=== PATIENT | female | born 1985 | race Caucasian/White ===

== ENCOUNTER 2016-12-09 19:30 | Emergency (ER) | payer BC ==
[~2016-12-09] VITALS: Ht 154.9 cm; Wt 73.2 kg
[~2016-12-09 19:30] MED LIST: KLONOPIN 0.5MG0.5 MG PO; LEXAPRO20 MG PO; MOTRIN 800800 MG/TAB PO; ORTHO TRI-CYCLE1 TAB PO; PEPCID 20MG TAB20 MG PO; PERCOCET 325 MG1 TA2 PO; PRENATAL1 TA2 PO; PROZAC 10MG10 MG PO; XANAX 0.5MG0.5 MG PO; ZOLOFT 50MG50 MG PO
[2016-12-09 19:44] VITALS: TEMP 98
[2016-12-09] MEDS ORDERED: LEXAPRO20 MG PO (19:50)
[2016-12-09] MEDS ORDERED: MONONESSA 35 MC1 TA1 PO (19:51)
[2016-12-09 20:44] LABS: BASO # 0.1 (0.0-0.2); BASO % 0.6 % (0.0-2.0); EOS % 0.4 % (0-4.0); GRAN # 6.7 (1.4-6.5); HEMATOCRIT 41.7 % (37.0-47.0); HEMOGLOBIN 14.9 g/dl (12.5-16.0); LYMPH # 2.7 (1.2-3.4); LYMPH % 26.4 % (20.0-51.0); MEAN CELL VOLUME 86 fl (80.0-100.0); MEAN CORPUSCULAR HEMOGLOBIN 31 pg (27.0-31.0); MEAN CORPUSCULAR HGB CONC 36 g/dl (33.0-37.0); MEAN PLATELET VOLUME 9.9 fl (7.4-10.4); MONO # 0.8 (0.1-0.6); MONO % 7.4 % (1.7-9.3); PLATELET COUNT 254 K/mm3 (130-400); RED BLOOD COUNT 4.87 M/mm3 (4.10-5.30); REDCELL DISTRIBUTION WIDTH-CV 11.4 % (11.5-14.5); WHITE BLOOD COUNT 10.3 K/mm3 (4.8-10.8)
[2016-12-09 20:59] LABS: ADJUSTED CALCIUM 9.3 mg/dL (8.4-10.2); ALANINE AMINOTRANSFERASE 40 U/L (9-52); ALBUMIN 4.9 gm/dL (3.5-5.0); ALKALINE PHOSPHATASE 64 U/L (50-136); ANION GAP 16 mmol/L (7-16); BILIRUBIN,TOTAL 0.8 mg/dL (0.0-1.0); BLOOD UREA NITROGEN 9 mg/dL (7-17); CARBON DIOXIDE 23 mmol/L (22-30); CHLORIDE 104 mmol/L (98-107); CREATININE, serum 0.62 mg/dL (0.52-1.25); GLUCOSE 87 mg/dL (74-106); SODIUM 143 mmol/L (137-145); TOTAL PROTEIN 8.3 gm/dL (6.4-8.2)
[2016-12-09 21:16] LABS: TROPONIN-I < 0.012 ng/mL (0.000-0.034)
[2016-12-09 22:07] VITALS: BP 123/84; PULSE 70
== END 2016-12-09 22:44 | disposition home or self-care (01) ==
LOC: COL.ER 19:30
PROVIDERS: Emergency Medicine
DX: R00.2 Palpitations (principal); E87.6 Hypokalemia; I34.1 Nonrheumatic mitral (valve) prolapse; F41.9 Anxiety disorder, unspecified
CPT/HCPCS: J2060; J7030

== ENCOUNTER → 2017-01-27 | Outpatient (CLI) | payer BC, OTHER ==
[~2017-01-27] MED LIST changes: +MONONESSA 35 MC1 TA1 PO
== END ==
LOC: BHSO 13:43
DX: F41.1 Generalized anxiety disorder (principal)
CPT/HCPCS: 90791-AI

== ENCOUNTER → 2017-03-10 | Outpatient (CLI) | payer BC, OTHER | LOC: BHSO 13:14 | DX: F41.1 Generalized anxiety disorder (principal) ==

== ENCOUNTER → 2017-04-22 | Outpatient (CLI) | payer BC, OTHER | LOC: BHSO 13:12 | DX: F41.1 Generalized anxiety disorder (principal) ==

== ENCOUNTER → 2017-05-15 | Outpatient (CLI) | payer BC | LOC: COL.VAS 13:15 | DX: I34.0 Nonrheumatic mitral (valve) insufficiency (principal) ==

== ENCOUNTER → 2017-05-21 | Outpatient (CLI) | payer BC | LOC: BHSO 13:06 | DX: F41.1 Generalized anxiety disorder (principal) ==

== ENCOUNTER → 2017-08-11 | Outpatient (CLI) | payer BC | LOC: BHSO 10:53 | DX: F41.1 Generalized anxiety disorder (principal) ==

== ENCOUNTER 2017-08-28 17:31 | Emergency (ER) | payer BC ==
[~2017-08-28] VITALS: Ht 154.9 cm; Wt 76.4 kg
[2017-08-28 17:33] VITALS: TEMP 97.7
[2017-08-28] MEDS ORDERED: FLAGYL500 MG PO (17:37)
[2017-08-28] MEDS ORDERED: ATIVAN 1MG T1 MG/TAB PO (17:38)
[2017-08-28] MEDS ORDERED: LEXAPRO 10MG10 MG PO (17:38)
[2017-08-28 18:20] LABS: BASO # 0.1 (0.0-0.2); BASO % 0.6 % (0.0-2.0); EOS # 0.1 (0.0-0.7); EOS % 0.9 % (0-4.0); GRAN # 7.3 (1.4-6.5); GRAN % 68.9 % (42.2-75.2); HEMATOCRIT 43.3 % (37.0-47.0); LYMPH # 2.2 (1.2-3.4); LYMPH % 21.1 % (20.0-51.0); MEAN CELL VOLUME 89 fl (80.0-100.0); MEAN CORPUSCULAR HEMOGLOBIN 31 pg (27.0-31.0); MEAN CORPUSCULAR HGB CONC 35 g/dl (33.0-37.0); MEAN PLATELET VOLUME 9.9 fl (7.4-10.4); MONO # 0.9 (0.1-0.6); MONO % 8.2 % (1.7-9.3); PLATELET COUNT 247 K/mm3 (130-400); RED BLOOD COUNT 4.89 M/mm3 (4.10-5.30); REDCELL DISTRIBUTION WIDTH-CV 11.4 % (11.5-14.5); WHITE BLOOD COUNT 10.6 K/mm3 (4.8-10.8)
[2017-08-28 18:30] LABS: PROTHROMBIN TIME 11.4 SECONDS (9.7-12.8)
[2017-08-28 18:32] LABS: PARTIAL THROMBOPLASTIN TIME 29.3 SECONDS (26.0-37.0)
[2017-08-28 18:35] LABS: ADJUSTED CALCIUM 8.9 mg/dL (8.4-10.2); ALANINE AMINOTRANSFERASE 31 U/L (9-52); ALBUMIN 4.4 gm/dL (3.5-5.0); ALKALINE PHOSPHATASE 58 U/L (50-136); ANION GAP 12 mmol/L (7-16); BILIRUBIN,TOTAL 0.6 mg/dL (0.0-1.0); BLOOD UREA NITROGEN 10 mg/dL (7-17); CALCIUM 9.2 mg/dL (8.4-10.2); CARBON DIOXIDE 23 mmol/L (22-30); CHLORIDE 106 mmol/L (98-107); CREATININE, serum 0.64 mg/dL (0.52-1.25); GLUCOSE 91 mg/dL (74-106); POTASSIUM 3.6 mmol/L (3.4-5.0); SODIUM 141 mmol/L (137-145); TOTAL PROTEIN 7.3 gm/dL (6.4-8.2)
[2017-08-28 18:55] LABS: TROPONIN-I < 0.012 ng/mL (0.000-0.034)
[2017-08-28 19:20] VITALS: BP 119/83; PULSE 91
== END 2017-08-28 19:20 | disposition home or self-care (01) ==
LOC: COL.ER 17:31
PROVIDERS: Family Medicine
DX: F41.0 Panic disorder [episodic paroxysmal anxiety] (principal); F32.9 Major depressive disorder, single episode, unspecified
CPT/HCPCS: J2060

== ENCOUNTER → 2017-09-25 | Outpatient (CLI) | payer BC ==
[~2017-09-25] MED LIST changes: +ATIVAN 1MG T1 MG/TAB PO; +FLAGYL500 MG PO; +LEXAPRO 10MG10 MG PO
== END ==
LOC: BHSO 13:38
DX: F41.1 Generalized anxiety disorder (principal)

== ENCOUNTER → 2017-10-22 | Outpatient (CLI) | payer BC | LOC: BHSO 14:40 | DX: F41.1 Generalized anxiety disorder (principal) ==

== ENCOUNTER 2018-12-19 10:57 | Emergency (ER) | payer MEDICAID ==
[~2018-12-19] VITALS: Ht 154.9 cm; Wt 89.5 kg
[2018-12-19 11:14] VITALS: BP 122/85; TEMP 99
[2018-12-19] MEDS ORDERED: MULTI VITAMINS1 TAB PO (11:38)
--- NOTE | 2018-12-19 11:40 | NUR ---
1140-This RN to [facility] ED Room 12, VSS, see flow record from ED. Placed on EFM. Patient reports good movement. Denies LOF or complaint of contractions. Difficulty tracing EFM, RN frequently repositioning. Repositioned WR. RN holding EFM in place, reactive FHR with moderate variability. Baseline FHR 140 bpm. Discontinued EFM, will update ED RN.
[2018-12-19 12:09] LABS: BASO % 0.3 % (0.0-2.0); EOS # 0.1 (0.0-0.7); EOS % 0.6 % (0-4.0); GRAN % 71.3 % (42.2-75.2); HEMATOCRIT 39.2 % (37.0-47.0); HEMOGLOBIN 13.4 g/dl (12.5-16.0); LYMPH # 1.8 (1.2-3.4); LYMPH % 18.5 % (20.0-51.0); MEAN CELL VOLUME 90 fl (80.0-100.0); MEAN CORPUSCULAR HEMOGLOBIN 31 pg (27.0-31.0); MEAN CORPUSCULAR HGB CONC 34 g/dl (33.0-37.0); MEAN PLATELET VOLUME 9.6 fl (7.4-10.4); MONO # 0.8 (0.1-0.6); MONO % 7.9 % (1.7-9.3); PLATELET COUNT 209 K/mm3 (130-400); RED BLOOD COUNT 4.37 M/mm3 (4.10-5.30); REDCELL DISTRIBUTION WIDTH-CV 12.3 % (11.5-14.5)
[2018-12-19 12:17] LABS: ALBUMIN 3.4 gm/dL (3.5-5.0); BILIRUBIN,TOTAL 0.2 mg/dL (0.0-1.0); CREATININE, serum 0.4 mg/dL (0.52-1.25); POTASSIUM 3.9 mmol/L (3.4-5.0); TOTAL PROTEIN 6.6 gm/dL (6.4-8.2)
[2018-12-19 12:48] LABS: TSH w REFLEX 1.06 uIU/mL (0.465-4.680)
[2018-12-19 13:03] VITALS: PULSE 90
== END 2018-12-19 13:07 | disposition home or self-care (01) ==
LOC: COL.ER 10:57
PROVIDERS: Emergency Medicine
DX: O26.812 Pregnancy related exhaustion and fatigue, second trimester (principal); O99.342 Other mental disorders complicating pregnancy, second trimester; F41.9 Anxiety disorder, unspecified; Z98.890 Other specified postprocedural states; Z3A.28 28 weeks gestation of pregnancy
CPT/HCPCS: J7030

== ENCOUNTER 2019-02-06 20:31 | Emergency (ER) | payer MEDICAID ==
[~2019-02-06] VITALS: Ht 154.9 cm; Wt 93.6 kg
[~2019-02-06 20:31] MED LIST changes: +MULTI VITAMINS1 TAB PO
[2019-02-06 20:40] VITALS: TEMP 98
[2019-02-06] MEDS ORDERED: EFFEXOR 75M75 MG/TAB PO (22:05)
[2019-02-06 23:07] LABS: BASO % 0.2 % (0.0-2.0); EOS # 0.1 (0.0-0.7); EOS % 0.5 % (0-4.0); GRAN # 8.7 (1.4-6.5); GRAN % 77.1 % (42.2-75.2); HEMATOCRIT 39.1 % (37.0-47.0); HEMOGLOBIN 13.6 g/dl (12.5-16.0); LYMPH # 1.5 (1.2-3.4); LYMPH % 13.6 % (20.0-51.0); MEAN CELL VOLUME 89 fl (80.0-100.0); MEAN CORPUSCULAR HEMOGLOBIN 31 pg (27.0-31.0); MEAN CORPUSCULAR HGB CONC 35 g/dl (33.0-37.0); MEAN PLATELET VOLUME 9.9 fl (7.4-10.4); MONO # 0.9 (0.1-0.6); PLATELET COUNT 195 K/mm3 (130-400); RED BLOOD COUNT 4.41 M/mm3 (4.10-5.30); REDCELL DISTRIBUTION WIDTH-CV 12.4 % (11.5-14.5)
--- NOTE | 2019-02-06 23:15 | NUR ---
FHR BASELINE 140 , ACCELS PRESENT, NO DECELS. NO UTERINE ACTIVITY NOTED OR PALPATED.MUCH MOVEMENT AUDIBLE
[2019-02-06 23:18] LABS: ALANINE AMINOTRANSFERASE 31 U/L (9-52); ALBUMIN 3.3 gm/dL (3.5-5.0); ALKALINE PHOSPHATASE 149 U/L (50-136); ANION GAP 6 mmol/L (7-16); AST,SGOT 25 U/L (15-37); BILIRUBIN,TOTAL 0.6 mg/dL (0.0-1.0); BLOOD UREA NITROGEN 6 mg/dL (7-17); CALCIUM 8.9 mg/dL (8.4-10.2); CARBON DIOXIDE 20 mmol/L (22-30); CHLORIDE 106 mmol/L (98-107); CREATININE, serum 0.38 mg/dL (0.52-1.25); GLUCOSE 82 mg/dL (74-106); POTASSIUM 3.8 mmol/L (3.4-5.0); SODIUM 132 mmol/L (137-145); TOTAL PROTEIN 6.4 gm/dL (6.4-8.2)
[2019-02-06 23:28] LABS: TROPONIN-I < 0.012 ng/mL (0.000-0.035)
[2019-02-07 00:28] LABS: COLLECTION METHOD CLEAN CATCH
[2019-02-07 01:10] LABS: AMORPHOUS CRYSTAL Present /uL; MUCOUS Present /lpf; PH 6 (5-8); SQUAMOUS EPITHELIAL 0-2 /hpf; URINE APPEARANCE Hazy; URINE BACTERIA Rare /hpf; URINE BILIRUBIN Negative (NEGATIVE); URINE BLOOD 1+ (NEGATIVE); URINE COLOR Yellow; URINE GLUCOSE Negative (NEGATIVE); URINE KETONE 1+ (NEGATIVE); URINE LEUKOCYTE ESTERASE Negative (NEGATIVE); URINE NITRATE Negative (NEGATIVE); URINE PROTEIN(semi-quant) Negative (NEGATIVE); URINE RBC 0-2 /hpf; URINE UROBILINOGEN Negative (NEGATIVE)
[2019-02-07 02:20] VITALS: BP 121/70; PULSE 80
== END 2019-02-07 02:21 | disposition home or self-care (01) ==
LOC: COL.ER 20:31
PROVIDERS: Emergency Medicine
DX: O26.893 Other specified pregnancy related conditions, third trimester (principal); R00.2 Palpitations; Z3A.36 36 weeks gestation of pregnancy
CPT/HCPCS: J7030

== ENCOUNTER 2019-03-03 05:31 | Inpatient (IN) | payer MEDICAID ==
[~2019-03-03] VITALS: Ht 154.9 cm; Wt 94.5 kg
[2019-03-03] VITALS (18 sets, daily range): BP systolic 104–143; BP diastolic 61–79; PULSE 78–124; TEMP 97.8–98.3
[~2019-03-03 05:31] MED LIST changes: +EFFEXOR 75M75 MG/TAB PO
--- NOTE | 2019-03-03 05:40 | NUR ---
Pt ambulatory to 210 for scheduled with her mother. Clean gown on. EFM and TOCO explained and applied. Vital signs taken. Pt denies LOF, vaginal bleeding or contractions. Reports good movement. 0553: IV started and labs obtained via IV site. LR bolus infusing without difficulties. Consents explained and signed. Call light within reach.
[2019-03-03 06:34] LABS: BASO % 0.2 % (0.0-2.0); EOS # 0.1 (0.0-0.7); EOS % 0.7 % (0-4.0); GRAN # 5.5 (1.4-6.5); GRAN % 65.5 % (42.2-75.2); HEMOGLOBIN 13.5 g/dl (12.5-16.0); LYMPH # 2.2 (1.2-3.4); LYMPH % 25.9 % (20.0-51.0); MEAN CELL VOLUME 89 fl (80.0-100.0); MEAN CORPUSCULAR HEMOGLOBIN 31 pg (27.0-31.0); MEAN CORPUSCULAR HGB CONC 35 g/dl (33.0-37.0); MEAN PLATELET VOLUME 10.1 fl (7.4-10.4); MONO # 0.6 (0.1-0.6); MONO % 7.1 % (1.7-9.3); PLATELET COUNT 200 K/mm3 (130-400); RED BLOOD COUNT 4.37 M/mm3 (4.10-5.30); REDCELL DISTRIBUTION WIDTH-CV 12.3 % (11.5-14.5)
[2019-03-03] MEDS ORDERED: FLINTSTONES COM1 CT1 PO (06:43)
[2019-03-03] MEDS ORDERED: OMEGA-3 1000 MG1 CAP PO (06:44)
--- NOTE | 2019-03-03 07:13 | NUR ---
0713- [facility] and TOCO off. Pt up to void. Ambulates to OR independently with staff and mother, Peg.
--- NOTE | 2019-03-03 07:29 | NUR ---
0720- EFM on and tracing in OR. 0929- EFM off for abd prep.
[2019-03-04 07:16] VITALS: BP 100/59; PULSE 83
[2019-03-04 16:00] VITALS: BP 104/51; PULSE 71; TEMP 98.5
[2019-03-04 19:00] VITALS: BP 96/67; PULSE 60; TEMP 98.4
[2019-03-05] MEDS ORDERED: PERCOCET 325 MG1 TA2 PO (04:54)
[2019-03-05] MEDS ORDERED: MOTRIN 800800 MG/TAB PO (04:54)
[2019-03-05 07:05] VITALS: BP 106/72; PULSE 77; TEMP 97.5
== END 2019-03-05 12:15 | disposition home or self-care (01) | DRG 788 ==
LOC: OB 05:31
PROVIDERS: ADMIT Obstetrics & Gynecology
PROC: 10D00Z1 Extraction of Products of Conception, Low, Open Approach (ICD-10-PCS; principal; 2019-03-03)
DX: O34.211 Maternal care for low transverse scar from previous cesarean delivery (principal); N85.8 Other specified noninflammatory disorders of uterus; Z3A.39 39 weeks gestation of pregnancy; Z37.0 Single live birth; O77.0 Labor and delivery complicated by meconium in amniotic fluid; O69.81X0 Labor and delivery complicated by cord around neck, without compression, not applicable or unspecified; O99.344 Other mental disorders complicating childbirth; F41.8 Other specified anxiety disorders; O99.824 Streptococcus B carrier state complicating childbirth
CPT/HCPCS: J0690; J1885; J2270; J2370; J2405; J2590; J7120

== ENCOUNTER → 2019-03-08 | Outpatient (CLI) | payer MEDICAID ==
[~2019-03-08] MED LIST changes: +FLINTSTONES COM1 CT1 PO; +OMEGA-3 1000 MG1 CAP PO
--- NOTE | 2019-03-08 15:07 | NUR ---
Pt, Luciana Salazar, presents for consult with 5 day old baby girl, Chrystal Salazar, for an evaluation because Chrystal was seen at Dr. Jensen's office earlier and her weight was reported to be less than her discharge weight. Also, she reports lots of stomach rumbling noises and the baby acting hungry frequently. Chrystal was born by repeat c/section on [birth year] and weighed 7#0.5oz (3190 gms). Discharge weight was documented as 6#7oz (2930 gms). Pt reports at Dr. Jensen's office her weight was 6#6oz. At this appointment Chrystal weighs 6#8.2oz (2954 gms). Pt states she did feed her about 30ml from a bottle at the doctor's appointment because she was concerned for the weight. She also was supplmented a little while in the hospital as well. Pt's breasts are full at this time with leaking noted. She is advised on support of baby and breast, latch is pretty easy and several swallows are noted. After nursing the right breast Chrystal has a weight gain of 2oz (58gms). She has a total weight gain of 2.4oz (66gms) after the second breast. Feeding plan reviewed to nurse the first breast thouroughly before switching to the second side, and to consider pumping the less nursed on side to help provide bottles as desired for excursions as pt does not feel comfortable in public. F/U: advised on weight check in two days a [facility] or next thursday at the walk-in clinic offer here. Pt verbalizes understanding, expresses relief baby is transfering milk and nursing better than she expected. Questions invited and answered.
== END ==
LOC: LAC 14:12
DX: Z39.1 Encounter for care and examination of lactating mother (principal); Z71.89 Other specified counseling

== ENCOUNTER 2019-05-21 05:26 | Emergency (ER) | payer MEDICAID ==
[~2019-05-21] VITALS: Ht 154.9 cm; Wt 86.8 kg
[2019-05-21 05:32] VITALS: TEMP 98.2
[2019-05-21] MEDS ORDERED: LEXAPRO20 MG PO (05:50)
[2019-05-21 06:22] LABS: COLLECTION METHOD CLEAN CATCH
[2019-05-21 06:26] LABS: BASO % 0.4 % (0.0-2.0); EOS # 0.1 (0.0-0.7); EOS % 1.3 % (0-4.0); GRAN % 62.6 % (42.2-75.2); HEMATOCRIT 40.2 % (37.0-47.0); HEMOGLOBIN 13.8 g/dl (12.5-16.0); LYMPH # 2.2 (1.2-3.4); LYMPH % 27.1 % (20.0-51.0); MEAN CELL VOLUME 88 fl (80.0-100.0); MEAN CORPUSCULAR HEMOGLOBIN 30 pg (27.0-31.0); MEAN CORPUSCULAR HGB CONC 34 g/dl (33.0-37.0); MEAN PLATELET VOLUME 9.4 fl (7.4-10.4); MONO # 0.7 (0.1-0.6); MONO % 8.3 % (1.7-9.3); PLATELET COUNT 261 K/mm3 (130-400); RED BLOOD COUNT 4.59 M/mm3 (4.10-5.30); REDCELL DISTRIBUTION WIDTH-CV 11.7 % (11.5-14.5)
[2019-05-21 06:30] LABS: PH 7 (5-8); SQUAMOUS EPITHELIAL 0-2 /hpf; URINE APPEARANCE Clear; URINE BACTERIA None Seen /hpf; URINE BILIRUBIN Negative (NEGATIVE); URINE BLOOD 1+ (NEGATIVE); URINE COLOR Yellow; URINE GLUCOSE Negative (NEGATIVE); URINE KETONE Trace (NEGATIVE); URINE LEUKOCYTE ESTERASE Trace (NEGATIVE); URINE NITRATE Negative (NEGATIVE); URINE PROTEIN(semi-quant) Negative (NEGATIVE); URINE UROBILINOGEN Negative (NEGATIVE)
[2019-05-21 06:36] LABS: ALANINE AMINOTRANSFERASE 30 U/L (9-52); ALBUMIN 3.9 gm/dL (3.5-5.0); ALKALINE PHOSPHATASE 94 U/L (50-136); ANION GAP 8 mmol/L (7-16); AST,SGOT 22 U/L (15-37); BILIRUBIN,TOTAL 0.4 mg/dL (0.0-1.0); BLOOD UREA NITROGEN 13 mg/dL (7-17); CALCIUM 9.2 mg/dL (8.4-10.2); CARBON DIOXIDE 25 mmol/L (22-30); CHLORIDE 110 mmol/L (98-107); CREATININE, serum 0.54 (0.52-1.25); GLUCOSE 87 mg/dL (74-106); LIPASE 95 U/L (23-300); MAGNESIUM 1.9 mg/dL (1.6-2.3); POTASSIUM 3.7 mmol/L (3.4-5.0); SODIUM 142 mmol/L (137-145)
[2019-05-21] MEDS ORDERED: PROTONIX 40MG T40 MG PO (06:40)
[2019-05-21 06:54] LABS: TROPONIN-I < 0.012 ng/mL (0.000-0.035)
[2019-05-21 07:29] VITALS: BP 111/74; PULSE 80
== END 2019-05-21 07:38 | disposition home or self-care (01) ==
LOC: COL.ER 05:26
PROVIDERS: Emergency Medicine
DX: F41.9 Anxiety disorder, unspecified (principal)
CPT/HCPCS: J2060

== ENCOUNTER 2021-04-01 03:28 | Observation (INO) | payer MEDICAID ==
[~2021-04-01] VITALS: Ht 154.9 cm; Wt 88.6 kg
[~2021-04-01 03:28] MED LIST changes: +CEPHALEXIN500 M1 PO; +PROTONIX 40MG T40 MG PO
[2021-04-01 04:11] LABS: BASO # 0.1 (0.0-0.2); BASO % 0.7 % (0.0-2.0); EOS # 0.1 (0.0-0.7); GRAN # 6.6 (1.4-6.5); GRAN % 65.9 % (42.2-75.2); HEMATOCRIT 40.9 % (37.0-47.0); HEMOGLOBIN 14.1 g/dl (12.5-16.0); LYMPH # 2.5 (1.2-3.4); LYMPH % 24.6 % (20.0-51.0); MEAN CELL VOLUME 88 fl (80.0-100.0); MEAN CORPUSCULAR HEMOGLOBIN 30 pg (27.0-31.0); MEAN CORPUSCULAR HGB CONC 35 g/dl (33.0-37.0); MEAN PLATELET VOLUME 9.5 fl (7.4-10.4); MONO # 0.7 (0.1-0.6); MONO % 7.4 % (1.7-9.3); PLATELET COUNT 261 K/mm3 (130-400); RED BLOOD COUNT 4.64 M/mm3 (4.10-5.30); REDCELL DISTRIBUTION WIDTH-CV 11.9 % (11.5-14.5)
[2021-04-01 04:22] LABS: ALBUMIN 4.2 gm/dL (3.5-5.0); BILIRUBIN,TOTAL 0.4 mg/dL (0.0-1.0); CALCIUM 8.7 mg/dL (8.4-10.2); CREATININE, serum 0.51 (0.52-1.25); POTASSIUM 3.4 mmol/L (3.4-5.0); TOTAL PROTEIN 7.3 gm/dL (6.4-8.2)
[2021-04-01 04:36] LABS: TROPONIN-I 0.866 ng/mL (0.000-0.035)
[2021-04-01 05:14] LABS: TRICYCLIC ANTIDEPRESS URINE NEGATIVE
[2021-04-01 06:19] VITALS: BP 123/80; PULSE 93; TEMP 98.5
--- NOTE | 2021-04-01 06:29 | NUR ---
PATIENT ARRIVED TO ROOM 310 VIA WHEELCHAIR FROM THE ER. PATIENT ABLE TO AMBULATE INDEPENDENTLY, ON ROOM AIR, A&O X'S 4, DENIES N/V. PATIENT ORIENTED TO ROOM, CALL LIGHT WITHIN REACH. MAGDY LANDA IN PATIENTS ROOM. NO REQUESTS OR CONCERNS VERBALIZED BY PATIENT AT THIS TIME.
[2021-04-01] MEDS ORDERED: XANAX 0.5MG0.5 MG PO (06:43)
[2021-04-01 08:28] VITALS: BP 110/60; PULSE 78; TEMP 97.9
--- NOTE | 2021-04-01 08:56 | NUR ---
Assessment completed, alert/oriented, vital signs stable, denies any chest pain/discomfort or palpitations this morning, heart RRR/SR on tele, distal pulses are palpable, lungs CTA/ no resp.difficulty noted or reported by patient, her initial troponin was elevated / 3hr Trop level is pending, Cardiology consulted and has been by to eval the patient / ECHO ordered and if this looks possible discharge with further outpatient workup, she denies other needs at this time
[2021-04-01] MEDS ORDERED: NORCO2.5 PO ×2 (11:47)
[2021-04-01 12:11] VITALS: BP 108/77; PULSE 58; TEMP 98.2
--- NOTE | 2021-04-01 13:53 | NUR ---
Discharge instructions reveiwed with the patient, instructed to follow up with PCP and Cardiology as we have scheudled for her, instructed to continue home meds as before, no new meds or med changes were made, instructed to have Cardiac Event Monitor set-up as we have schedule for her later this week, IV and tele removed, she is ambulatory and [employer] ATTENDANT escorted her out the door
== END 2021-04-01 13:54 | disposition home or self-care (01) ==
LOC: COL.ER 03:28 → MEDICAL 05:01
PROVIDERS: Emergency Medicine; ADMIT Hospitalist
DX: R00.2 Palpitations (principal); I21.4 Non-ST elevation (NSTEMI) myocardial infarction; I34.0 Nonrheumatic mitral (valve) insufficiency; R77.8 Other specified abnormalities of plasma proteins; F41.9 Anxiety disorder, unspecified; Z79.899 Other long term (current) drug therapy; Z91.048 Other nonmedicinal substance allergy status; Z88.8 Allergy status to other drugs, medicaments and biological substances; Z82.49 Family history of ischemic heart disease and other diseases of the circulatory system
CPT/HCPCS: G0378; J1650; J7030

== ENCOUNTER → 2021-04-05 | Outpatient (CLI) | payer MEDICAID ==
[~2021-04-05] MED LIST changes: +NORCO2.5 PO
== END ==
LOC: COL.CARD 07:10
DX: R00.2 Palpitations (principal)

== ENCOUNTER 2021-08-03 15:21 | Emergency (ER) | payer MEDICAID ==
[~2021-08-03] VITALS: Ht 154.9 cm; Wt 88.6 kg
[2021-08-03 15:27] VITALS: TEMP 98.7
[2021-08-03 15:53] LABS: BASO # 0.1 (0.0-0.2); BASO % 0.7 % (0.0-2.0); EOS # 0.1 (0.0-0.7); EOS % 0.8 % (0-4.0); GRAN # 9.4 (1.4-6.5); GRAN % 69.1 % (42.2-75.2); HEMATOCRIT 45.6 % (37.0-47.0); HEMOGLOBIN 15.8 g/dl (12.5-16.0); LYMPH # 2.8 (1.2-3.4); LYMPH % 20.6 % (20.0-51.0); MEAN CELL VOLUME 87 fl (80.0-100.0); MEAN CORPUSCULAR HEMOGLOBIN 30 pg (27.0-31.0); MEAN CORPUSCULAR HGB CONC 35 g/dl (33.0-37.0); MEAN PLATELET VOLUME 9.9 fl (7.4-10.4); MONO # 1.2 (0.1-0.6); MONO % 8.4 % (1.7-9.3); PLATELET COUNT 331 K/mm3 (130-400); RED BLOOD COUNT 5.26 M/mm3 (4.10-5.30); REDCELL DISTRIBUTION WIDTH-CV 11.9 % (11.5-14.5)
[2021-08-03 15:55] LABS: PROTHROMBIN TIME 11.3 SECONDS (9.7-12.8)
[2021-08-03 15:57] LABS: PARTIAL THROMBOPLASTIN TIME 32.1 SECONDS (26.0-37.0)
[2021-08-03 16:00] LABS: ALANINE AMINOTRANSFERASE 51 U/L (4-34); ALBUMIN 4.6 gm/dL (3.5-5.0); ALKALINE PHOSPHATASE 73 U/L (50-136); ANION GAP 10 mmol/L (7-16); AST,SGOT 34 U/L (15-37); BILIRUBIN,TOTAL 0.7 mg/dL (0.0-1.0); BLOOD UREA NITROGEN 8 mg/dL (7-17); CALCIUM 9.6 mg/dL (8.4-10.2); CARBON DIOXIDE 26 mmol/L (22-30); CHLORIDE 104 mmol/L (98-107); CREATININE, serum 0.71 (0.52-1.25); GLUCOSE 97 mg/dL (74-106); POTASSIUM 3.7 mmol/L (3.4-5.0); SODIUM 141 mmol/L (137-145); TOTAL PROTEIN 7.8 gm/dL (6.4-8.2)
[2021-08-03 16:25] LABS: TROPONIN-I < 0.012 ng/mL (0.000-0.035)
[2021-08-03 19:04] VITALS: BP 104/84; PULSE 92
[2021-08-03 19:41] LABS: TSH w REFLEX 0.859 uIU/mL (0.350-4.940)
== END 2021-08-03 19:04 | disposition home or self-care (01) ==
LOC: COL.ER 15:21
PROVIDERS: Family Medicine
DX: E86.0 Dehydration (principal); F41.9 Anxiety disorder, unspecified; Z79.899 Other long term (current) drug therapy
CPT/HCPCS: J7030

== ENCOUNTER 2021-08-27 15:12 | Emergency (ER) | payer MEDICAID ==
[~2021-08-27] VITALS: Ht 154.9 cm; Wt 90.9 kg
[2021-08-27 15:20] VITALS: TEMP 97.6
[2021-08-27 16:12] LABS: BASO # 0.1 K/mm3 (0.0-0.2); BASO % 0.7 % (0.0-2.0); EOS % 0.4 % (0-4.0); GRAN % 71.9 % (42.2-75.2); HEMATOCRIT 44.3 % (37.0-47.0); HEMOGLOBIN 15.1 g/dl (12.5-16.0); LYMPH # 1.9 K/mm3 (1.2-3.4); LYMPH % 19.8 % (20.0-51.0); MEAN CELL VOLUME 88 fl (80.0-100.0); MEAN CORPUSCULAR HEMOGLOBIN 30 pg (27.0-31.0); MEAN CORPUSCULAR HGB CONC 34 g/dl (33.0-37.0); MEAN PLATELET VOLUME 9.5 fl (7.4-10.4); MONO # 0.7 K/mm3 (0.1-0.6); MONO % 6.9 % (1.7-9.3); PLATELET COUNT 328 K/mm3 (130-400); RED BLOOD COUNT 5.05 M/mm3 (4.10-5.30); REDCELL DISTRIBUTION WIDTH-CV 11.6 % (11.5-14.5)
[2021-08-27 16:28] LABS: ALANINE AMINOTRANSFERASE 53 U/L (0-55); ALBUMIN 4.2 gm/dL (3.5-5.0); ALKALINE PHOSPHATASE 65 U/L (0-750); ANION GAP 10 mmol/L (7-16); AST,SGOT 26 U/L (5-34); BILIRUBIN,TOTAL 0.4 mg/dL (0.2-1.2); BLOOD UREA NITROGEN 6 mg/dL (7-19); CALCIUM 9.5 mg/dL (8.4-10.2); CARBON DIOXIDE 22 mmol/L (22-29); CHLORIDE 110 mmol/L (98-107); CREATININE, serum 0.71 mg/dL (0.57-1.11); GLUCOSE 99 mg/dL (70-99); POTASSIUM 3.8 mmol/L (3.5-4.5); SODIUM 142 mmol/L (136-145); TOTAL PROTEIN 7.4 gm/dL (6.2-8.1)
[2021-08-27 17:32] LABS: TROPONIN-I < 0.010 ng/mL (0.00-0.033)
[2021-08-27 20:20] VITALS: BP 133/89; PULSE 91
== END 2021-08-27 20:20 | disposition home or self-care (01) ==
LOC: COL.ER 15:12
PROVIDERS: Personal Emergency Response Attendant
DX: R00.2 Palpitations (principal); F41.9 Anxiety disorder, unspecified; Z86.79 Personal history of other diseases of the circulatory system; Z79.899 Other long term (current) drug therapy
CPT/HCPCS: J7030; Q9967

== ENCOUNTER 2021-12-22 04:53 | Emergency (ER) | payer MEDICAID ==
[2021-12-22 05:01] VITALS: BP 96/68; PULSE 104
[2021-12-22 05:34] VITALS: TEMP 98.1
== END 2021-12-22 05:35 | disposition home or self-care (01) ==
LOC: COL.ER 04:53
DX: F41.9 Anxiety disorder, unspecified (principal); Z79.899 Other long term (current) drug therapy

== ENCOUNTER 2022-02-02 19:48 | Emergency (ER) | payer MEDICAID ==
[~2022-02-02] VITALS: Ht 154.9 cm; Wt 83.2 kg
[2022-02-02 19:56] VITALS: TEMP 98.5
[2022-02-02 21:18] LABS: ALBUMIN 4.3 gm/dL (3.5-5.0); CALCIUM 9.7 mg/dL (8.4-10.2); CREATININE, serum 0.71 mg/dL (0.57-1.11); PHOSPHOROUS 3.3 mg/dL (2.3-4.7); POTASSIUM 3.2 mmol/L (3.5-4.5)
[2022-02-02] MEDS ORDERED: ELIQUIS 5MG PO (23:17)
[2022-02-02 23:19] LABS: BASO # 0.1 K/mm3 (0.0-0.2); BASO % 0.6 % (0.0-2.0); EOS # 0.1 K/mm3 (0.0-0.7); GRAN # 4.9 K/mm3 (1.4-6.5); GRAN % 56.8 % (42.2-75.2); HEMATOCRIT 42.7 % (37.0-47.0); HEMOGLOBIN 14.9 g/dl (12.5-16.0); LYMPH # 2.9 K/mm3 (1.2-3.4); LYMPH % 33.2 % (20.0-51.0); MEAN CELL VOLUME 85 fl (80.0-100.0); MEAN CORPUSCULAR HEMOGLOBIN 30 pg (27-31); MEAN CORPUSCULAR HGB CONC 35 g/dl (33.0-37.0); MONO # 0.7 K/mm3 (0.1-0.6); MONO % 8.2 % (1.7-9.3); PLATELET COUNT 280 K/mm3 (130-400); RED BLOOD COUNT 5.03 M/mm3 (4.10-5.30)
[2022-02-03 00:16] VITALS: BP 146/101; PULSE 101
== END 2022-02-03 00:14 | disposition home or self-care (01) ==
LOC: COL.ER 19:48
PROVIDERS: Emergency Medicine
DX: I26.99 Other pulmonary embolism without acute cor pulmonale (principal); E87.6 Hypokalemia; F41.9 Anxiety disorder, unspecified; R79.1 Abnormal coagulation profile
CPT/HCPCS: Q9967

== ENCOUNTER 2022-02-05 07:38 | Emergency (ER) | payer MEDICAID ==
[~2022-02-05] VITALS: Ht 154.9 cm; Wt 82.3 kg
[~2022-02-05 07:38] MED LIST changes: +ELIQUIS 5MG PO
[2022-02-05 07:43] VITALS: TEMP 97.4
[2022-02-05] MEDS ORDERED: LOPRESSOR 225 MG/TAB PO (09:43)
[2022-02-05 09:55] VITALS: BP 123/93; PULSE 57
== END 2022-02-05 09:55 | disposition home or self-care (01) ==
LOC: COL.ER 07:38
DX: R00.2 Palpitations (principal); Z86.711 Personal history of pulmonary embolism; Z79.01 Long term (current) use of anticoagulants

== ENCOUNTER 2022-02-08 15:37 | Emergency (ER) | payer MEDICAID ==
[~2022-02-08] VITALS: Ht 154.9 cm; Wt 82.3 kg
[~2022-02-08 15:37] MED LIST changes: +LOPRESSOR 225 MG/TAB PO
[2022-02-08 16:17] VITALS: TEMP 98.3
[2022-02-08 16:51] VITALS: BP 149/89; PULSE 83
== END 2022-02-08 16:51 | disposition home or self-care (01) ==
LOC: COL.ER 15:37
DX: F41.9 Anxiety disorder, unspecified (principal); I74.3 Embolism and thrombosis of arteries of the lower extremities

== ENCOUNTER 2023-09-10 16:19 | Emergency (ER) | payer MEDICAID ==
[~2023-09-10] VITALS: Ht 154.9 cm; Wt 78.6 kg
[~2023-09-10 16:19] MED LIST changes: +AMOXICILLIN 8751 TAB PO
[2023-09-10 16:24] VITALS: TEMP 98
[2023-09-10 16:54] LABS: BASO % 0.5 % (0.0-2.0); EOS % 0.3 % (0.0-4.0); GRAN # 3.7 K/mm3 (1.4-6.5); GRAN % 49.4 % (42.2-75.2); HEMATOCRIT 44.5 % (37.0-47.0); HEMOGLOBIN 15.1 g/dl (12.5-16.0); LYMPH # 2.8 K/mm3 (1.2-3.4); LYMPH % 37.3 % (20.0-51.0); MEAN CELL VOLUME 90 fl (80.0-100.0); MEAN CORPUSCULAR HEMOGLOBIN 30 pg (27-31); MEAN CORPUSCULAR HGB CONC 34 g/dl (33.0-37.0); MEAN PLATELET VOLUME 9.4 fl (7.4-10.4); MONO # 0.9 K/mm3 (0.1-0.6); MONO % 12.4 % (1.7-9.3); PLATELET COUNT 277 K/mm3 (130-400); RED BLOOD COUNT 4.97 M/mm3 (4.10-5.30)
[2023-09-10 17:00] LABS: ALANINE AMINOTRANSFERASE 17 U/L (0-55); ALBUMIN 4.1 gm/dL (3.5-5.0); ALKALINE PHOSPHATASE 50 U/L (40-150); ANION GAP 11 mmol/L (7-16); AST,SGOT 18 U/L (5-34); BILIRUBIN,TOTAL 0.3 mg/dL (0.2-1.2); BLOOD UREA NITROGEN 12 mg/dL (7-19); CALCIUM 9.4 mg/dL (8.4-10.2); CARBON DIOXIDE 22 mmol/L (22-29); CHLORIDE 108 mmol/L (98-107); CREATININE, serum 0.78 mg/dL (0.57-1.11); GLUCOSE 109 mg/dL (70-99); POTASSIUM 3.8 mmol/L (3.5-4.5); SODIUM 141 mmol/L (136-145); TOTAL PROTEIN 7.5 gm/dL (6.2-8.1)
[2023-09-10 17:20] LABS: TROPONIN-I < 0.010 ng/mL (0.00-0.033)
[2023-09-10 19:14] VITALS: BP 145/70; PULSE 64
== END 2023-09-10 19:12 | disposition home or self-care (01) ==
LOC: COL.ER 16:19
PROVIDERS: Emergency Medicine
DX: U07.1 COVID-19 (principal); R07.89 Other chest pain; R00.2 Palpitations; R05.9 Cough, unspecified; R53.1 Weakness; R53.83 Other fatigue; R50.9 Fever, unspecified; Z86.711 Personal history of pulmonary embolism; Z73.0 Burn-out
CPT/HCPCS: J7030